=== PATIENT | female | born 1950 | race Caucasian/White ===

== ENCOUNTER 2018-08-02 16:45 | Observation (INO) | payer MEDICARE, OTHER ==
[2018-08-02] MEDS ORDERED: Diltiazem 25 MG/5 ML SDV ONE (16:56)
[2018-08-02] MEDS ORDERED: Diltiazem 25 MG/5 ML SDV IVPUSH ONE (16:56)
[2018-08-02] MEDS ORDERED: Labetalol 20 MG/4 ML Syringe ONE (17:08)
[2018-08-02] MEDS ORDERED: Aspirin 81 MG Tab.Chew PO ONE (17:08)
[2018-08-02] MEDS ORDERED: Aspirin 81 MG Tab.Chew ONE (17:08)
[2018-08-02] MEDS ORDERED: Labetalol 20 MG/4 ML Syringe IVPUSH ONE (17:08)
--- NOTE | 2018-08-02 17:26 | EDM.PDOC ---
ED HPI GENERAL MEDICAL PROBLEM - General Chief Complaint: Cardiovascular Problem Stated Complaint: racing heart, HTN Time Seen by Provider: 08/02/18 16:55 - History of Present Illness INITIAL COMMENTS - FREE TEXT/NARRATIVE: Patient is a 68-year-old female who was brought in by a retired nurse state that [place] were at the opera house after leaving the opera house patient went to the car and wasn't feeling well so they went home at that time her friend noted that her carotids were bouncing and pounding friend tried obtaining a pulse but it was too fast to count she was pale and her friend told her that they were going to the hospital after she took her blood pressure which was 162/121 patient denied chest pain just stated that her heart was pounding and it felt like it was coming out of her chest and didn't feel well Patient has not been feeling well for about 3 weeks with head stuffiness coughing productive low-grade fever on and off Onset: Today, Sudden Duration: Minutes:, Getting Worse Location: Reports: Chest Quality: Reports: Pressure, Throbbing Severity: Severe Improves with: Reports: Medication Worsens with: Reports: None Context: Reports: Other (Punctate areas) Associated Symptoms: Reports: No Other Symptoms - Related Data Allergies Allergy/AdvReac Type Severity Reaction Status Date / Time Penicillins Allergy red Verified 08/02/18 17:12 inflammed skin, joint pain rofecoxib [From Vioxx] Allergy Muscle Verified 08/02/18 17:[address] Dye Allergy Hives, Red Uncoded 08/02/18 17:12 hot skin Home Meds: Home Meds Acetaminophen [Tylenol Extra Strength] 1,000 mg PO Q4H PRN 08/02/18 [History] Aspirin 81 mg PO BEDTIME 08/02/18 [History] Calcium Citrate/Vitamin D3 [Citracal-Vit D 250 MG-200] 1 tab PO BID 08/02/18 [ History] Cholecalciferol (Vitamin D3) [Vitamin D3] 5,000 unit PO DAILY 08/02/18 [History] Levothyroxine [Levothroid] 137 mcg PO DAILY 08/02/18 [History] Multivitamin/Iron/Folic Acid [Centrum Women Tablet] 1 tab PO DAILY 08/02/18 [ History] Vitamin K2 50 mcg PO DAILY 08/02/18 [History] ED ROS GENERAL - Review of Systems Review Of Systems: See Below Constitutional: Reports: Weakness HEENT: Reports: No Symptoms Respiratory: Reports: No Symptoms Cardiovascular: Reports: Lightheadedness, Palpitations GI/Abdominal: Reports: No Symptoms : Reports: No Symptoms Musculoskeletal: Reports: No Symptoms Skin: Reports: No Symptoms Neurological: Reports: No Symptoms Psychiatric: Reports: No Symptoms Hematologic/Lymphatic: Reports: No Symptoms Immunologic: Reports: No Symptoms ED EXAM, GENERAL - Physical Exam Exam: See Below Exam Limited By: No Limitations General Appearance: Alert, WD/WN, Severe Distress Ears: Normal External Exam, Normal Canal, Hearing Grossly Normal, Normal TMs Nose: Normal Inspection, Normal Mucosa, No Blood Throat/Mouth: Normal Inspection, Normal Lips, Normal Teeth, Normal Gums, Normal Oropharynx, Normal Voice, No Airway Compromise Head: Atraumatic, Normocephalic Neck: Normal Inspection, Supple, Non-Tender, Full Range of Motion Respiratory/Chest: No Respiratory Distress, Lungs Clear, Normal Breath Sounds, No Accessory Muscle Use, Chest Non-Tender Cardiovascular: Normal Peripheral Pulses, Regular Rate, Rhythm, No Edema, No Gallop, No JVD, No Murmur, No Rub GI/Abdominal: Normal Bowel Sounds, Soft, Non-Tender, No Organomegaly, No Distention, No Abnormal Bruit, No Mass (Female) Exam: Deferred Rectal (Female) Exam: Deferred Extremities: Normal Inspection, Normal Range of Motion, Non-Tender, Normal Capillary Refill, No Pedal Edema Neurological: Alert, Oriented, CN II-XII Intact, Normal Cognition, Normal Gait, Normal Reflexes, No Motor/Sensory Deficits Psychiatric: Normal Affect, Normal Mood Skin Exam: Warm, Dry, Intact, Normal Color, No Rash Lymphatic: No Adenopathy Course - Vital Signs Last Recorded V/S: Last Vital Signs Temp 98.1 F 08/03/18 08:00 Pulse 79 08/03/18 08:00 Resp 16 08/03/18 08:00 BP 109/70 08/03/18 08:00 Pulse Ox 99 08/03/18 08:00 - Orders/Labs/Meds Orders: Active Orders 24 hr Category Date Time Status EKG Documentation Completion [RC] ASDIRECTED Care 08/02/18 17:08 Active EKG Documentation Completion [RC] ASDIRECTED Care 08/02/18 17:16 Active Chest 1V Frontal [CR] Stat Exams 08/02/18 17:08 Taken Medication Orders Enoxaparin Sodium (Lovenox) 40 mg SUBCUT DAILY [facility] Last Admin: 08/03/18 07:35 Dose: 40 mg Metoprolol Succinate (Toprol Xl) 50 mg PO BEDTIME [facility] Last Admin: 08/02/18 22:10 Dose: 50 mg Ondansetron HCl (Zofran) 4 mg IVPUSH Q6H PRN PRN Reason: Nausea/Vomiting Labs: Laboratory Tests 08/02/18 08/02/18 08/02/18 Range/Units 17:00 17:00 17:00 WBC (4.0-10.2) K/uL RBC (3.77-5.09) M/uL Hgb (11.7-15.5) g/dL Hct (34.0-46.0) % MCV (84.0-98.0) fL MCH (28.2-33.3) pg MCHC (31.7-36.0) g/dL RDW (11.2-14.1) % Plt Count (150-350) K/uL Neut % (Auto) (45.0-80.0) % Lymph % (Auto) (10.0-50.0) % [place] % (Auto) (2.0-14.0) % Eos % (Auto) (0.0-5.0) % Baso % (Auto) (0.0-2.0) % Neut # (Auto) (1.40-7.00) K/uL Lymph # (Auto) (0.50-3.50) K/uL [place] # (Auto) (0.00-1.00) K/uL Eos # (Auto) (0.00-0.50) K/uL Baso # (Auto) (0.00-0.20) K/uL PT 10.3 (9.5-12.0) SEC INR 1.0 APTT 25.4 (21.0-31.3) SEC D-Dimer, Quantitative (0-400) ng/mL Sodium 143 (136-145) mmol/L Potassium 3.7 (3.5-5.1) mmol/L Chloride 103 (98-107) mmol/L Carbon Dioxide 26.7 (21.0-32.0) mmol/L BUN 14 (7-18) mg/dL Creatinine 1.04 (0.51-1.17) mg/dL Est Cr Clr Drug Dosing 40.01 mL/min Estimated GFR (MDRD) 53 mL/min Glucose 145 H (74-106) mg/dL Lactic Acid (0.4-2.0) mmol/L Calcium 9.7 (8.5-10.1) mg/dL Magnesium 2.2 (1.8-2.4) mg/dL Total Bilirubin 0.5 (0.2-1.0) mg/dL AST 22 (15-37) U/L ALT 27 (12-78) U/L Alkaline Phosphatase 133 H (46-116) IU/L Creatine Kinase 169 (26-308) U/L Creatine Kinase Index 0.6 (0.0-2.5) % CK-MB (CK-2) 1.00 (0.00-3.60) ng/mL Troponin I 0.000 (0.000-0.056) ng/mL NT-Pro-B Natriuret Pep 47 (0-125) pg/mL Total Protein 8.1 (6.4-8.2) g/dL Albumin 3.9 (3.4-5.0) g/dL TSH, Ultra Sensitive 0.079 L (0.358-3.740) mIU/mL 08/02/18 08/02/18 08/02/18 Range/Units 17:00 17:00 17:05 WBC 13.2 H (4.0-10.2) K/uL RBC 5.04 (3.77-5.09) M/uL Hgb 15.1 (11.7-15.5) g/dL Hct 44.0 (34.0-46.0) % MCV 87.3 (84.0-98.0) fL MCH 30.0 (28.2-33.3) pg MCHC 34.3 (31.7-36.0) g/dL RDW 13.3 (11.2-14.1) % Plt Count 306 (150-350) K/uL Neut % (Auto) 71.7 (45.0-80.0) % Lymph % (Auto) 20.2 (10.0-50.0) % [place] % (Auto) 6.5 (2.0-14.0) % Eos % (Auto) 1.4 (0.0-5.0) % Baso % (Auto) 0.2 (0.0-2.0) % Neut # (Auto) 9.47 H (1.40-7.00) K/uL Lymph # (Auto) 2.66 (0.50-3.50) K/uL [place] # (Auto) 0.86 (0.00-1.00) K/uL Eos # (Auto) 0.18 (0.00-0.50) K/uL Baso # (Auto) 0.03 (0.00-0.20) K/uL PT (9.5-12.0) SEC INR APTT (21.0-31.3) SEC D-Dimer, Quantitative 180 (0-400) ng/mL Sodium (136-145) mmol/L Potassium (3.5-5.1) mmol/L Chloride (98-107) mmol/L Carbon Dioxide (21.0-32.0) mmol/L BUN (7-18) mg/dL Creatinine (0.51-1.17) mg/dL Est Cr Clr Drug Dosing mL/min Estimated GFR (MDRD) mL/min Glucose (74-106) mg/dL Lactic Acid 2.1 H (0.4-2.0) mmol/L Calcium (8.5-10.1) mg/dL Magnesium (1.8-2.4) mg/dL Total Bilirubin (0.2-1.0) mg/dL AST (15-37) U/L ALT (12-78) U/L Alkaline Phosphatase (46-116) IU/L Creatine Kinase (26-308) U/L Creatine Kinase Index (0.0-2.5) % CK-MB (CK-2) (0.00-3.60) ng/mL Troponin I (0.000-0.056) ng/mL NT-Pro-B Natriuret Pep (0-125) pg/mL Total Protein (6.4-8.2) g/dL Albumin (3.4-5.0) g/dL TSH, Ultra Sensitive (0.358-3.740) mIU/mL Meds: Medications Generic Name Dose Route Start Last Admin Trade Name Freq PRN Reason Stop Dose Admin Enoxaparin Sodium 40 mg 08/03/18 08:00 08/03/18 07:35 Lovenox SUBCUT 40 mg DAILY SURAJ Administration Metoprolol Succinate 50 mg 08/02/18 20:00 08/02/18 22:10 Toprol Xl PO 50 mg BEDTIME SURAJ Administration Ondansetron HCl 4 mg 08/02/18 18:48 Zofran IVPUSH Q6H PRN Nausea/Vomiting Discontinued Medications Generic Name Dose Route Start Last Admin Trade Name Freq PRN Reason Stop Dose Admin Adenosine 6 mg 08/02/18 17:27 08/02/18 16:54 Adenocard IVPUSH 08/02/18 17:28 6 mg NOW ONE Administration Adenosine 12 mg 08/02/18 17:28 08/02/18 17:00 Adenocard IVPUSH 08/02/18 17:29 Not Given NOW ONE Aspirin Confirm 08/02/18 17:08 08/02/18 21:16 Aspirin Administered 08/02/18 17:09 Not Given Dose 324 mg .ROUTE .STK-MED ONE Aspirin 324 mg 08/02/18 17:08 08/02/18 17:08 Aspirin PO 08/02/18 17:09 324 mg ONETIME ONE Administration Diltiazem HCl Confirm 08/02/18 16:56 08/02/18 21:16 Diltiazem Administered 08/02/18 16:57 Not Given Dose 25 mg .ROUTE .STK-MED ONE Diltiazem HCl 25 mg 08/02/18 16:56 08/02/18 16:56 Diltiazem IVPUSH 08/02/18 16:57 25 mg ONETIME ONE Administration Labetalol HCl Confirm 08/02/18 17:08 08/02/18 21:16 Normodyne Administered 08/02/18 17:09 Not Given Dose 20 mg .ROUTE .STK-MED ONE Labetalol HCl 10 mg 08/02/18 17:08 08/02/18 17:08 Normodyne IVPUSH 08/02/18 17:09 10 mg ONETIME ONE Administration Protocol Departure - Departure Time of Disposition: 17:50 Disposition: Refer to Observation Clinical Impression: Atrial fibrillation with rapid ventricular response - Problem List & Annotations (1) Supraventricular tachycardia seen on tail board man SNOMED Code(s): 040699415 Code(s): I47.1 - SUPRAVENTRICULAR TACHYCARDIA Status: Acute Current Visit : No Annotation/Comment:: 08-02-18 will refer patient to observation for monitoring. Started on Toprol XL- see other annotations from 08-02-18 [id number] NSR. Patient is currently asymptomatic. Would like to monitor for another night due to adding new medications for this. Vitals stable. One Call contacted today at [place] to see if Cardiology would like to see patient. Patiently currently on Toprol XL for management. - Problem List Review Problem List Initiated/Reviewed/Updated: Yes - My Orders Last 24 Hours: My Active Orders 08/02/18 17:08 EKG Documentation Completion [RC] ASDIRECTED Chest 1V Frontal [CR] Stat 08/02/18 17:16 EKG Documentation Completion [RC] ASDIRECTED - Assessment/Plan Admission H&P: Please use this note as an admission H&P Last 24 Hours: My Active Orders 08/02/18 17:08 EKG Documentation Completion [RC] ASDIRECTED Chest 1V Frontal [CR] Stat 08/02/18 17:16 EKG Documentation Completion [RC] ASDIRECTED
[2018-08-02] MEDS ORDERED: Adenosine 6 MG/2 ML SDV IVPUSH ONE ×2 (17:27→17:28)
[2018-08-02] MEDS ORDERED: Ondansetron 4 MG/2 ML SDV IVPUSH PRN (18:48)
[2018-08-02] MEDS: Metoprolol Succinate 50 MG Tab.ER PO SCH (22:10)
[2018-08-03 06:47] LABS: CHLORIDE,CL 106 mmol/L (98-107); SODIUM,NA 142 mmol/L (136-145)
[2018-08-03] MEDS: Enoxaparin 40 MG/0.4 ML Syringe SUBCUT SCH (07:35)
--- NOTE | 2018-08-03 11:30 | PCM.PN ---
- General Info Date of Service: 08/03/18 - Review of Systems General: Denies: Weakness, Fatigue HEENT: Reports: No Symptoms Pulmonary: Denies: Shortness of Breath, Pleuritic Chest Pain, Cough Cardiovascular: Denies: Chest Pain, Palpitations, Dyspnea on Exertion Gastrointestinal: Reports: No Symptoms Genitourinary: Reports: No Symptoms Musculoskeletal: Reports: No Symptoms Skin: Reports: No Symptoms Neurological: Reports: No Symptoms Psychiatric: Reports: No Symptoms - Patient Data Vitals - Most Recent: Last Vital Signs Temp 98.1 F 08/03/18 08:00 Pulse 79 08/03/18 08:00 Resp 16 08/03/18 08:00 BP 109/70 08/03/18 08:00 Pulse Ox 99 08/03/18 08:00 Weight - Most Recent: 199 lb I&O - Last 24 Hours: Intake & Output 08/02/18 08/03/18 08/03/18 22:59 06:59 14:59 Intake Total 600 100 480 Balance 600 100 480 Lab Results Last 24 Hours: Laboratory Results - last 24 hr 08/02/18 08/02/18 08/02/18 Range/Units 17:00 17:00 17:00 WBC (4.0-10.2) K/uL RBC (3.77-5.09) M/uL Hgb (11.7-15.5) g/dL Hct (34.0-46.0) % MCV (84.0-98.0) fL MCH (28.2-33.3) pg MCHC (31.7-36.0) g/dL RDW (11.2-14.1) % Plt Count (150-350) K/uL Neut % (Auto) (45.0-80.0) % Lymph % (Auto) (10.0-50.0) % [place] % (Auto) (2.0-14.0) % Eos % (Auto) (0.0-5.0) % Baso % (Auto) (0.0-2.0) % Neut # (Auto) (1.40-7.00) K/uL Lymph # (Auto) (0.50-3.50) K/uL [place] # (Auto) (0.00-1.00) K/uL Eos # (Auto) (0.00-0.50) K/uL Baso # (Auto) (0.00-0.20) K/uL PT 10.3 (9.5-12.0) SEC INR 1.0 APTT 25.4 (21.0-31.3) SEC D-Dimer, Quantitative (0-400) ng/mL Sodium 143 (136-145) mmol/L Potassium 3.7 (3.5-5.1) mmol/L Chloride 103 (98-107) mmol/L Carbon Dioxide 26.7 (21.0-32.0) mmol/L BUN 14 (7-18) mg/dL Creatinine 1.04 (0.51-1.17) mg/dL Est Cr Clr Drug Dosing 40.01 mL/min Estimated GFR (MDRD) 53 mL/min Glucose 145 H (74-106) mg/dL Lactic Acid (0.4-2.0) mmol/L Calcium 9.7 (8.5-10.1) mg/dL Magnesium 2.2 (1.8-2.4) mg/dL Total Bilirubin 0.5 (0.2-1.0) mg/dL AST 22 (15-37) U/L ALT 27 (12-78) U/L Alkaline Phosphatase 133 H (46-116) IU/L Creatine Kinase 169 (26-308) U/L Creatine Kinase Index 0.6 (0.0-2.5) % CK-MB (CK-2) 1.00 (0.00-3.60) ng/mL Troponin I 0.000 (0.000-0.056) ng/mL NT-Pro-B Natriuret Pep 47 (0-125) pg/mL Total Protein 8.1 (6.4-8.2) g/dL Albumin 3.9 (3.4-5.0) g/dL TSH, Ultra Sensitive 0.079 L (0.358-3.740) mIU/mL 08/02/18 08/02/18 08/02/18 Range/Units 17:00 17:00 17:05 WBC 13.2 H (4.0-10.2) K/uL RBC 5.04 (3.77-5.09) M/uL Hgb 15.1 (11.7-15.5) g/dL Hct 44.0 (34.0-46.0) % MCV 87.3 (84.0-98.0) fL MCH 30.0 (28.2-33.3) pg MCHC 34.3 (31.7-36.0) g/dL RDW 13.3 (11.2-14.1) % Plt Count 306 (150-350) K/uL Neut % (Auto) 71.7 (45.0-80.0) % Lymph % (Auto) 20.2 (10.0-50.0) % [place] % (Auto) 6.5 (2.0-14.0) % Eos % (Auto) 1.4 (0.0-5.0) % Baso % (Auto) 0.2 (0.0-2.0) % Neut # (Auto) 9.47 H (1.40-7.00) K/uL Lymph # (Auto) 2.66 (0.50-3.50) K/uL [place] # (Auto) 0.86 (0.00-1.00) K/uL Eos # (Auto) 0.18 (0.00-0.50) K/uL Baso # (Auto) 0.03 (0.00-0.20) K/uL PT (9.5-12.0) SEC INR APTT (21.0-31.3) SEC D-Dimer, Quantitative 180 (0-400) ng/mL Sodium (136-145) mmol/L Potassium (3.5-5.1) mmol/L Chloride (98-107) mmol/L Carbon Dioxide (21.0-32.0) mmol/L BUN (7-18) mg/dL Creatinine (0.51-1.17) mg/dL Est Cr Clr Drug Dosing mL/min Estimated GFR (MDRD) mL/min Glucose (74-106) mg/dL Lactic Acid 2.1 H (0.4-2.0) mmol/L Calcium (8.5-10.1) mg/dL Magnesium (1.8-2.4) mg/dL Total Bilirubin (0.2-1.0) mg/dL AST (15-37) U/L ALT (12-78) U/L Alkaline Phosphatase (46-116) IU/L Creatine Kinase (26-308) U/L Creatine Kinase Index (0.0-2.5) % CK-MB (CK-2) (0.00-3.60) ng/mL Troponin I (0.000-0.056) ng/mL NT-Pro-B Natriuret Pep (0-125) pg/mL Total Protein (6.4-8.2) g/dL Albumin (3.4-5.0) g/dL TSH, Ultra Sensitive (0.358-3.740) mIU/mL 08/03/18 08/03/18 08/03/18 Range/Units 00:05 06:15 06:15 WBC 7.6 (4.0-10.2) K/uL RBC 4.32 (3.77-5.09) M/uL Hgb 12.9 D (11.7-15.5) g/dL Hct 38.5 (34.0-46.0) % MCV 89.1 (84.0-98.0) fL MCH 29.9 (28.2-33.3) pg MCHC 33.5 (31.7-36.0) g/dL RDW 13.2 (11.2-14.1) % Plt Count 254 (150-350) K/uL Neut % (Auto) 69.8 (45.0-80.0) % Lymph % (Auto) 19.2 (10.0-50.0) % [place] % (Auto) 8.0 (2.0-14.0) % Eos % (Auto) 2.6 (0.0-5.0) % Baso % (Auto) 0.4 (0.0-2.0) % Neut # (Auto) 5.31 (1.40-7.00) K/uL Lymph # (Auto) 1.46 (0.50-3.50) K/uL [place] # (Auto) 0.61 (0.00-1.00) K/uL Eos # (Auto) 0.20 (0.00-0.50) K/uL Baso # (Auto) 0.03 (0.00-0.20) K/uL PT (9.5-12.0) SEC INR APTT (21.0-31.3) SEC D-Dimer, Quantitative (0-400) ng/mL Sodium 142 (136-145) mmol/L Potassium 3.9 (3.5-5.1) mmol/L Chloride 106 (98-107) mmol/L Carbon Dioxide 29.7 (21.0-32.0) mmol/L BUN 11 (7-18) mg/dL Creatinine 0.90 (0.51-1.17) mg/dL Est Cr Clr Drug Dosing 46.23 mL/min Estimated GFR (MDRD) > 60 mL/min Glucose 85 (74-106) mg/dL Lactic Acid (0.4-2.0) mmol/L Calcium 8.7 (8.5-10.1) mg/dL Magnesium 2.0 (1.8-2.4) mg/dL Total Bilirubin (0.2-1.0) mg/dL AST (15-37) U/L ALT (12-78) U/L Alkaline Phosphatase (46-116) IU/L Creatine Kinase (26-308) U/L Creatine Kinase Index (0.0-2.5) % CK-MB (CK-2) (0.00-3.60) ng/mL Troponin I 0.031 (0.000-0.056) ng/mL NT-Pro-B Natriuret Pep (0-125) pg/mL Total Protein (6.4-8.2) g/dL Albumin (3.4-5.0) g/dL TSH, Ultra Sensitive (0.358-3.740) mIU/mL 08/03/18 Range/Units 06:15 WBC (4.0-10.2) K/uL RBC (3.77-5.09) M/uL Hgb (11.7-15.5) g/dL Hct (34.0-46.0) % MCV (84.0-98.0) fL MCH (28.2-33.3) pg MCHC (31.7-36.0) g/dL RDW (11.2-14.1) % Plt Count (150-350) K/uL Neut % (Auto) (45.0-80.0) % Lymph % (Auto) (10.0-50.0) % [place] % (Auto) (2.0-14.0) % Eos % (Auto) (0.0-5.0) % Baso % (Auto) (0.0-2.0) % Neut # (Auto) (1.40-7.00) K/uL Lymph # (Auto) (0.50-3.50) K/uL [place] # (Auto) (0.00-1.00) K/uL Eos # (Auto) (0.00-0.50) K/uL Baso # (Auto) (0.00-0.20) K/uL PT (9.5-12.0) SEC INR APTT (21.0-31.3) SEC D-Dimer, Quantitative (0-400) ng/mL Sodium (136-145) mmol/L Potassium (3.5-5.1) mmol/L Chloride (98-107) mmol/L Carbon Dioxide (21.0-32.0) mmol/L BUN (7-18) mg/dL Creatinine (0.51-1.17) mg/dL Est Cr Clr Drug Dosing mL/min Estimated GFR (MDRD) mL/min Glucose (74-106) mg/dL Lactic Acid (0.4-2.0) mmol/L Calcium (8.5-10.1) mg/dL Magnesium (1.8-2.4) mg/dL Total Bilirubin (0.2-1.0) mg/dL AST (15-37) U/L ALT (12-78) U/L Alkaline Phosphatase (46-116) IU/L Creatine Kinase (26-308) U/L Creatine Kinase Index (0.0-2.5) % CK-MB (CK-2) (0.00-3.60) ng/mL Troponin I 0.044 (0.000-0.056) ng/mL NT-Pro-B Natriuret Pep (0-125) pg/mL Total Protein (6.4-8.2) g/dL Albumin (3.4-5.0) g/dL TSH, Ultra Sensitive (0.358-3.740) mIU/mL Med Orders - Current: Current Medications Enoxaparin Sodium (Lovenox) 40 mg SUBCUT DAILY [facility] Last Admin: 08/03/18 07:35 Dose: 40 mg Metoprolol Succinate (Toprol Xl) 50 mg PO BEDTIME [facility] Last Admin: 08/02/18 22:10 Dose: 50 mg Ondansetron HCl (Zofran) 4 mg IVPUSH Q6H PRN PRN Reason: Nausea/Vomiting Discontinued Medications Adenosine (Adenocard) 6 mg IVPUSH NOW ONE Stop: 08/02/18 17:28 Last Admin: 08/02/18 16:54 Dose: 6 mg Adenosine (Adenocard) 12 mg IVPUSH NOW ONE Stop: 08/02/18 17:29 Last Admin: 08/02/18 17:00 Dose: Not Given Aspirin (Aspirin) Confirm Administered Dose 324 mg .ROUTE .STK-MED ONE Stop: 08/02/18 17:09 Last Admin: 08/02/18 21:16 Dose: Not Given Aspirin (Aspirin) 324 mg PO ONETIME ONE Stop: 08/02/18 17:09 Last Admin: 08/02/18 17:08 Dose: 324 mg Diltiazem HCl (Diltiazem) Confirm Administered Dose 25 mg .ROUTE .STK-MED ONE Stop: 08/02/18 16:57 Last Admin: 08/02/18 21:16 Dose: Not Given Diltiazem HCl (Diltiazem) 25 mg IVPUSH ONETIME ONE Stop: 08/02/18 16:57 Last Admin: 08/02/18 16:56 Dose: 25 mg Labetalol HCl (Normodyne) Confirm Administered Dose 20 mg .ROUTE .STK-MED ONE Stop: 08/02/18 17:09 Last Admin: 08/02/18 21:16 Dose: Not Given Labetalol HCl (Normodyne) 10 mg IVPUSH ONETIME ONE; Protocol Stop: 08/02/18 17:09 Last Admin: 08/02/18 17:08 Dose: 10 mg - Exam General: Alert, Oriented HEENT: Pupils Equal, Pupils Reactive, EOMI, Mucous Membr. 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 Patient is currently asymptomatic. Would like to monitor for another night due to adding new medications for this. Vitals stable. One Call contacted today at [place] to see if Cardiology would like to see patient. Patiently currently on Toprol XL for management. - Problem List Review Problem List Initiated/Reviewed/Updated: Yes - My Orders Last 24 Hours: My Active Orders 08/02/18 17:08 EKG Documentation Completion [RC] ASDIRECTED Chest 1V Frontal [CR] Stat 08/02/18 17:16 EKG Documentation Completion [RC] ASDIRECTED 08/02/18 18:38 Patient Status [ADT] Routine Oxygen Therapy [RC] PRN VTE/DVT Education [RC] PER UNIT ROUTINE Vital Signs [RC] Q4H Resuscitation Status Routine 08/02/18 18:45 Patient Status [ADT] Routine Oxygen Therapy [RC] PRN VTE/DVT Education [RC] PER UNIT ROUTINE Vital Signs [RC] Q4H 08/02/18 18:48 Bedrest Bathroom Privileges [RC] ASDIRECTED Up to Chair [RC] ASDIRECTED Ondansetron [Zofran] 4 mg IVPUSH Q6H PRN 08/02/18 18:49 Patient Status [ADT] Routine Cardiac Monitoring [RC] Q2HR Oxygen Therapy [RC] PRN VTE/DVT Education [RC] PER UNIT ROUTINE Vital Signs [RC] Q4HR 08/02/18 18:54 EKG Documentation Completion [RC] 0511 08/02/18 20:00 Metoprolol Succinate [Toprol XL] 50 mg PO BEDTIME 08/02/18 Dinner 2 Gram Sodium Diet [DIET] 08/03/18 05:11 EKG 12 Lead [EK] AM 08/03/18 08:00 Enoxaparin [Lovenox] 40 mg SUBCUT DAILY 08/03/18 23:30 LACTIC ACID [CHEM] Routine MAGNESIUM [CHEM] Routine TROPONIN I [CHEM] Routine 08/04/18 05:11 EKG Documentation Completion [RC] ASDIRECTED EKG 12 Lead [EK] Stat
[2018-08-03] MEDS: Metoprolol Succinate 50 MG Tab.ER PO SCH (20:08)
[2018-08-03] MEDS: Sodium Chloride 0.9% 10 ML Syringe FLUSH SCH (23:27)
[2018-08-04] MEDS: Enoxaparin 40 MG/0.4 ML Syringe SUBCUT SCH (07:31)
[2018-08-04] MEDS: Sodium Chloride 0.9% 10 ML Syringe FLUSH SCH (07:31)
--- NOTE | 2018-08-04 10:41 | PCM.DCSUM1 ---
Discharge Summary - Hospital Course Free Text/Narrative:: Patient is a 68 -year-old female who was seen in the ER with supraventricular tachycardia at a rate of greater than 200 and hypertension initially treated with adenosine which brought her ventricular rate down to about 120 was given diltiazem 2 patient tolerated well medications heart rate was down into the 90s at that time patient was started on Toprol 50 mg by mouth daily rate has continued controlled for the last 48 hours patient is been doing well at this time we referred her to cardiology at [place] and will continue her on all her medications plus Toprol XL. - Discharge Data Discharge Date: 08/04/18 Discharge Disposition: Home, Self-Care Condition: Good - Discharge Diagnosis/Problem(s) (1) Supraventricular tachycardia seen on cardiac exercise specialist SNOMED Code(s): 422354292 ICD Code: I47.1 - SUPRAVENTRICULAR TACHYCARDIA Status: Acute Current Visit: No Problem Details: 08-02-18 will refer patient to observation for monitoring. Started on Toprol XL- see other annotations from 08-02-18 3-20-37[place] NSR. Patient is currently asymptomatic. Would like to monitor for another night due to adding new medications for this. Vitals stable. One Call contacted today at [place] to see if Cardiology would like to see patient. Patiently currently on Toprol XL for management. 08-04-18 Patient doing well will discharge today on all meds plus Toprol XL 50mg by mouth daily. - Patient Instructions Diet: Heart Healthy Diet Activity: As Tolerated Driving: May Drive Today Other/Special Instructions: A consult was sent to Cardiology at [place] for an outpatient follow up appointment. If you do not hear in 1 week back from [place] , please call us and we will contact them. - Discharge Plan *PRESCRIPTION DRUG MONITORING PROGRAM REVIEWED*: Not Applicable *COPY OF PRESCRIPTION DRUG MONITORING REPORT IN PATIENT DELMA: Not Applicable Prescriptions/Med Rec: Metoprolol Succinate [Toprol XL 50mg] 50 mg PO BEDTIME #30 tab.er Home Medications: Home Meds Acetaminophen [Tylenol Extra Strength] 1,000 mg PO Q4H PRN 08/02/18 [History] Aspirin 81 mg PO BEDTIME 08/02/18 [History] Calcium Citrate/Vitamin D3 [Citracal-Vit D 250 MG-200] 1 tab PO BID 08/02/18 [ History] Cholecalciferol (Vitamin D3) [Vitamin D3] 5,000 unit PO DAILY 08/02/18 [History] Levothyroxine [Levothroid] 137 mcg PO DAILY 08/02/18 [History] Multivitamin/Iron/Folic Acid [Centrum Women Tablet] 1 tab PO DAILY 08/02/18 [ History] Vitamin K2 50 mcg PO DAILY 08/02/18 [History] Metoprolol Succinate [Toprol XL 50mg] 50 mg PO BEDTIME #30 tab.er 08/04/18 [Rx] Patient Handouts: Supraventricular Tachycardia, Adult, [id number], Metoprolol tablets, Enoxaparin injection Forms: ED Department Discharge Referrals: Cardiology, [facility] [Other] (A consult was sent to [place] cardiology for outpatient appointment) - Discharge Summary/Plan Comment DC Time >30 min.: No - General Info Date of Service: 08/04/18 - Review of Systems General: Reports: No Symptoms HEENT: Reports: No Symptoms Pulmonary: Reports: No Symptoms Cardiovascular: Reports: No Symptoms Gastrointestinal: Reports: No Symptoms Genitourinary: Reports: No Symptoms Musculoskeletal: Reports: No Symptoms Skin: Reports: No Symptoms Neurological: Reports: No Symptoms Psychiatric: Reports: No Symptoms - Patient Data Vitals - Most Recent: Last Vital Signs Temp 97.6 F 08/04/18 08:00 Pulse 65 08/04/18 08:00 Resp 16 08/04/18 08:00 BP 184/83 H 08/04/18 08:00 Pulse Ox 98 08/04/18 08:00 Weight - Most Recent: 199 lb I&O - Last 24 hours: Intake & Output 08/03/18 08/04/18 08/04/18 22:59 06:59 14:59 Intake Total 740 50 520 Balance 740 50 520 Lab Results - Last 24 hrs: Laboratory Results - last 24 hr 08/03/18 08/03/18 Range/Units 23:02 23:02 Lactic Acid 1.4 (0.4-2.0) mmol/L Magnesium 2.1 (1.8-2.4) mg/dL Troponin I 0.025 (0.000-0.056) ng/mL Med Orders - Current: Current Medications Enoxaparin Sodium (Lovenox) 40 mg SUBCUT DAILY SURAJ Last Admin: 08/04/18 07:31 Dose: 40 mg Metoprolol Succinate (Toprol Xl) 50 mg PO BEDTIME [facility] Last Admin: 08/03/18 20:08 Dose: 50 mg Ondansetron HCl (Zofran) 4 mg IVPUSH Q6H PRN PRN Reason: Nausea/Vomiting Sodium Chloride (Saline Flush) 10 ml FLUSH Q12HR [facility] Last Admin: 08/04/18 07:31 Dose: 10 ml Discontinued Medications Adenosine (Adenocard) 6 mg IVPUSH NOW ONE Stop: 08/02/18 17:28 Last Admin: 08/02/18 16:54 Dose: 6 mg Adenosine (Adenocard) 12 mg IVPUSH NOW ONE Stop: 08/02/18 17:29 Last Admin: 08/02/18 17:00 Dose: Not Given Aspirin (Aspirin) Confirm Administered Dose 324 mg .ROUTE .STK-MED ONE Stop: 08/02/18 17:09 Last Admin: 08/02/18 21:16 Dose: Not Given Aspirin (Aspirin) 324 mg PO ONETIME ONE Stop: 08/02/18 17:09 Last Admin: 08/02/18 17:08 Dose: 324 mg Diltiazem HCl (Diltiazem) Confirm Administered Dose 25 mg .ROUTE .STK-MED ONE Stop: 08/02/18 16:57 Last Admin: 08/02/18 21:16 Dose: Not Given Diltiazem HCl (Diltiazem) 25 mg IVPUSH ONETIME ONE Stop: 08/02/18 16:57 Last Admin: 08/02/18 16:56 Dose: 25 mg Labetalol HCl (Normodyne) Confirm Administered Dose 20 mg .ROUTE .STK-MED ONE Stop: 08/02/18 17:09 Last Admin: 08/02/18 21:16 Dose: Not Given Labetalol HCl (Normodyne) 10 mg IVPUSH ONETIME ONE; Protocol Stop: 08/02/18 17:09 Last Admin: 08/02/18 17:08 Dose: 10 mg - Exam General: Reports: Alert, Oriented HEENT: Reports: Pupils Equal, Pupils Reactive, EOMI, Mucous Membr. Moist/[place] Neck: Reports: Supple Lungs: Reports: Clear to Auscultation, Normal Respiratory Effort Cardiovascular: Reports: Regular Rate, Regular Rhythm GI/Abdominal Exam: Normal Bowel Sounds, Soft, Non-Tender, No Organomegaly, No Distention, No Abnormal Bruit, No Mass, Pelvis Stable (Female) Exam: Deferred Rectal (Female) Exam: Deferred Back Exam: Reports: Normal Inspection, Full Range of Motion Extremities: Normal Inspection, Normal Range of Motion, Non-Tender, No Pedal Edema, Normal Capillary Refill Skin: Reports: Warm, Dry, Intact Neurological: Reports: No New Focal Deficit Psy/Mental Status: Reports: Alert, Normal Affect, Normal Mood
== END 2018-08-04 11:20 | disposition home or self-care (01) ==
LOC: LL.ED 16:45 → LL.MS 17:50 → UNDOADMOB 17:50
PROVIDERS: ADMIT Family Medicine; ATTEND Family Medicine
DX: I47.1 Supraventricular tachycardia (principal); I10 Essential (primary) hypertension; Z79.890 Hormone replacement therapy; Z79.82 Long term (current) use of aspirin; Z79.899 Other long term (current) drug therapy
CPT/HCPCS: 36415; 71045; 80048; 80053; 82550; 82553; 83605; 83735; 83880; 84443; 84484; 85025; 85379; 85610; 85730; 93005; 96372; 96374; 96375; 99291; A9270-GY; G0378; J0153; J1650; J3490

== ENCOUNTER 2020-03-13 13:30 | Emergency (ER) | payer MEDICARE, OTHER ==
[2020-03-13] MEDS ORDERED: Adenosine 6 MG/2 ML SDV IVPUSH ONE ×2 (13:39→13:44)
[2020-03-13 14:00] LABS: PTT,PARTIAL THROMBOPLSTIN TIME 26.2 SEC (24.5-32.8)
[2020-03-13 14:05] LABS: CHLORIDE,CL 102 mmol/L (98-107); SODIUM,NA 140 mmol/L (136-145)
--- NOTE | 2020-03-13 14:31 | EDM.PDOC ---
ED HPI GENERAL MEDICAL PROBLEM - General Chief Complaint: Cardiovascular Problem Stated Complaint: svt in cardiac rehab Time Seen by Provider: 03/13/20 13:35 Source of Information: Reports: Patient History Limitations: Reports: No Limitations - History of Present Illness INITIAL COMMENTS - FREE TEXT/NARRATIVE: Pt was in cardiac rehab and had acute onset of SVT with rate of 190 Episode caught on monitor No chest pain Mild SOB Can feel heart racing Has had stents in past and had one episode of SVT in past as well Onset: Sudden Duration: Minutes: Location: Reports: Chest Context: Reports: Exercise 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 (see below) Other Treatments [employer]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: 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 - Related Data Allergies Allergy/AdvReac Type Severity Reaction Status Date / Time Penicillins Allergy red Verified 03/13/20 13:31 inflammed skin, joint pain rofecoxib [From Vioxx] Allergy Muscle Verified 03/13/20 13:[address] Dye Allergy Hives, Red Uncoded 03/13/20 13:31 hot skin Home Meds: Home Meds Acetaminophen [Tylenol Extra Strength] 1,000 mg PO Q4H PRN 08/02/18 [History] Aspirin 81 mg PO BEDTIME 08/02/18 [History] Calcium Citrate/Vitamin D3 [Citracal-Vit D 250 MG-200] 1 tab PO BID 08/02/18 [History] Levothyroxine [Levothroid] 125 mcg PO DAILY 08/02/18 [History] Multivitamin/Iron/Folic Acid [Centrum Women Tablet] 1 tab PO DAILY 08/02/18 [History] Metoprolol Succinate [Toprol XL 50mg] 50 mg PO BEDTIME #30 tab.er 08/04/18 [Rx] Clopidogrel Bisulfate [Plavix] 75 mg PO DAILY 03/13/20 [History] Nitroglycerin [Nitrostat] 0.4 mg SL Q5M PRN MDD 3 03/13/20 [History] Rosuvastatin [Crestor] 20 mg PO DAILY 03/13/20 [History] Past Medical History HEENT History: Reports: Hard of Hearing, Impaired Vision Cardiovascular History: Reports: Hypertension, Other (See Below) Other Cardiovascular History: 08/02/18 SVT in 200s Respiratory History: Reports: None 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: Psychiatric History: Reports: None Endocrine/Metabolic History: Reports: Obesity/BMI 30+ Oncologic (Cancer) History: Reports: Other (See Below) Other Oncologic History: history rectal cancer - Infectious Disease History Infectious Disease History: Reports: None - Past Surgical History Cardiovascular Surgical History: Reports: None GI Surgical History: Reports: Cholecystectomy Female Surgical History: Reports: Hysterectomy Social & Family History - Family History Cardiac: Reports: Arrhythmia Neurological: Reports: CVA - Tobacco Use Smoking Status *Q: Never Smoker Second Hand Smoke Exposure: Yes - Caffeine Use Caffeine Use: Reports: Coffee Other Caffeine Use: 6-8 cups of coffee - Alcohol Use Days Per Week of Alcohol Use: 1 Number of Drinks Per Day: 1 Total Drinks Per Week: 1 - Recreational Drug Use Recreational Drug Use: No ED ROS GENERAL - Review of Systems Review Of Systems: See Below Constitutional: Reports: No Symptoms HEENT: Reports: No Symptoms Respiratory: Reports: No Symptoms Cardiovascular: Reports: Palpitations GI/Abdominal: Reports: No Symptoms ED EXAM, GENERAL - Physical Exam Exam: See Below Exam Limited By: No Limitations General Appearance: Alert, WD/WN, Mild Distress Neck: Supple Respiratory/Chest: Lungs Clear Cardiovascular: Tachycardia GI/Abdominal: Soft, Non-Tender Course - Vital Signs Last Recorded V/S: Last Vital Signs Temp 97.4 F 03/13/20 13:30 Pulse 88 03/13/20 13:55 Resp 18 03/13/20 13:55 BP 141/81 H 03/13/20 13:42 Pulse Ox 98 03/13/20 13:55 - Orders/Labs/Meds Orders: Active Orders 24 hr Category Date Time Status EKG Documentation Completion [RC] ASDIRECTED Care 03/13/20 13:38 Active EKG Documentation Completion [RC] ASDIRECTED Care 03/13/20 13:45 Active Labs: Laboratory Tests 03/13/20 03/13/20 03/13/20 Range/Units 13:40 13:40 13:40 WBC 11.2 H (4.0-10.2) K/uL RBC 5.05 (3.77-5.09) M/uL Hgb 14.9 D (11.7-15.5) g/dL Hct 43.8 (34.0-46.0) % MCV 86.7 (84.0-98.0) fL MCH 29.5 (28.2-33.3) pg MCHC 34.0 (31.7-36.0) g/dL RDW 13.2 (11.2-14.1) % Plt Count 270 (150-350) K/uL Neut % (Auto) 69.1 (45.0-80.0) % Lymph % (Auto) 18.7 (10.0-50.0) % [place] % (Auto) 8.4 (2.0-14.0) % Eos % (Auto) 3.4 (0.0-5.0) % Baso % (Auto) 0.4 (0.0-2.0) % Neut # (Auto) 7.75 H (1.40-7.00) K/uL Lymph # (Auto) 2.10 (0.50-3.50) K/uL [place] # (Auto) 0.94 (0.00-1.00) K/uL Eos # (Auto) 0.38 (0.00-0.50) K/uL Baso # (Auto) 0.04 (0.00-0.20) K/uL PT 10.0 (9.5-12.0) SEC INR 1.0 APTT 26.2 (24.5-32.8) SEC Sodium 140 (136-145) mmol/L Potassium 3.8 (3.5-5.1) mmol/L Chloride 102 (98-107) mmol/L Carbon Dioxide 26.9 (21.0-32.0) mmol/L BUN 16 (7-18) mg/dL Creatinine 0.99 (0.51-1.17) mg/dL Est Cr Clr Drug Dosing TNP Estimated GFR (MDRD) 55 mL/min Glucose 100 (74-106) mg/dL Calcium 9.5 (8.5-10.1) mg/dL Total Bilirubin 0.5 (0.2-1.0) mg/dL AST 24 (15-37) U/L ALT 31 (12-78) U/L Alkaline Phosphatase 110 (46-116) IU/L Troponin I 0.004 (0.000-0.056) ng/mL Total Protein 8.0 (6.4-8.2) g/dL Albumin 4.0 (3.4-5.0) g/dL Meds: Medications Discontinued Medications Generic Name Dose Route Start Last Admin Trade Name Freq PRRafael Reason Stop Dose Admin Adenosine 6 mg 03/13/20 13:39 03/13/20 13:40 Adenocard IVPUSH 03/13/20 13:40 6 mg NOW ONE Administration Adenosine 12 mg 03/13/20 13:44 Adenocard IVPUSH 03/13/20 13:45 NOW ONE - Re-Assessments/Exams Free Text/Narrative Re-Assessment/Exam: 03/13/20 14:29 Pt in SVT with rate 190 Pt given Adenosine 6 mg IV and then Adenosine 12 mg IV and converted to NSR with rate in the 80's No chest pain No SOB Remains hemodynamically stable See lab and EKG's Pt desire to go home and follow up with cardiology No further cardiac rehab until cardiology opinion Departure - Departure Time of Disposition: 14:30 Disposition: Home, Self-Care 01 Clinical Impression: SVT (supraventricular tachycardia) Instructions: Supraventricular Tachycardia, Adult, [id number] Additional Instructions: Follow up with cardiology Sepsis Event Note (ED) - Evaluation Sepsis Screening Result: No Definite Risk - Focused Exam Vital Signs: Vital Signs Temp Pulse Resp BP Pulse Ox 03/13/20 13:55 88 18 98 03/13/20 13:42 92 18 141/81 H 99 03/13/20 13:30 97.4 F 191 H 22 H 118/63 99 - My Orders Last 24 Hours: My Active Orders 03/13/20 13:38 EKG Documentation Completion [RC] ASDIRECTED 03/13/20 13:45 EKG Documentation Completion [RC] ASDIRECTED - Assessment/Plan Last 24 Hours: My Active Orders 03/13/20 13:38 EKG Documentation Completion [RC] ASDIRECTED 03/13/20 13:45 EKG Documentation Completion [RC] ASDIRECTED
== END 2020-03-13 14:40 | disposition home or self-care (01) ==
LOC: LL.ED 13:30
DX: I47.1 Supraventricular tachycardia (principal); I10 Essential (primary) hypertension; E66.9 Obesity, unspecified; Z88.0 Allergy status to penicillin; Z88.1 Allergy status to other antibiotic agents; Z91.041 Radiographic dye allergy status; Z79.899 Other long term (current) drug therapy; Z79.01 Long term (current) use of anticoagulants; Z90.49 Acquired absence of other specified parts of digestive tract; Z90.89 Acquired absence of other organs
CPT/HCPCS: 36415; 80053; 84484; 85025; 85610; 85730; 93005; 96374; 99285-25; J0153